=== PATIENT | male | born 1940 | race Caucasian/White ===

== ENCOUNTER 2022-05-19 13:54 | Emergency (ER) | payer MEDICARE, SELFPAY ==
--- NOTE | 2022-05-19 14:14 | XR_ITS ---
WS: [id number] Portable AP upright chest, 05/19/2022 Clinical Data: feeling unwell, COVID exposure Comparison: None. Findings: No nodules, masses or effusions are seen. The heart is normal. The pulmonary vascularity is not increased. No pneumonia or pneumothorax is seen. The aortic arch and descending thoracic aorta s how tortuosity. XR/XR chest 1V portable [id number] Impression: Atherosclerosis.
[2022-05-19 14:23] VITALS: BP 98/61; PULSE 74; RESP 16; TEMP 37.7; O2SAT 95
--- NOTE | 2022-05-19 16:53 | ED_ITS ---
HPI - General Adult General: Chief complaint: General Medical Stated complaint: Was exposed to covid, Not feeling well Time Seen by Provider: 05/19/22 15:41 Source: patient Mode of arrival: ambulatory Limitations: no limitations History of Present Illness: 82-year-old male presents emergency room as a h istory of dementia. Recently exposed to COVID by his . Patient has Alzheimer's. Generally not feeling well mild cough. No fevers.Patient denies chest or abdominal pain. Onset (ago): minute(s) Location: head Relieving factors: none Exacerbating factors: none Associated symptoms: Deny chest pain, confusion, cough, diaphoresis, decreased appetite, dyspnea, fevers/chills, headache(s), malaise, nausea, rash, palpitations, seizures, short of breath, syncope, vomiting or weakness Treatments prior to arrival: none Review of Systems Const: Denies: malaise or diaphoresis Card: Denies: chest pain, palpitations or syncope Resp: Denies: dyspnea GI: Denies: abdominal pain, nausea or vomiting Skin/Breast: Denies: rash Neuro: Denies: headache(s) or confusion PFSH ED PFSH: Medical History FH: carotid endarterectomy Surgical History H/O hernia repair H/O prostatectomy Social History Smoking and tobacco status: never smoked Second hand smoke exposure: No Smoking risk assessment/counseling performed?: No Alcohol intake: never Desire information about alcohol rehabilitation?: No Counseling given: No Desire information about substance/drug rehabilitation?: No Counseling given: No Physical Exam Const: GENERAL APPEARANCE: cooperative and comfortable ORIENTATION/CONSCIOUSNESS: Yes awake HENMT: COMMON NORMALS: normocephalic and atraumatic HEAD & SCALP: n ormocephalic and atraumatic Neck/C-Spine: COMMON NORMALS: no JVD Resp: COMMON NORMALS: normal respiratory effort, No retractions, No use of accessory muscles and clear to auscultation bilaterally AUSCULTATION: clear to auscultation bilaterally Cardio: COMMON NORMALS: no JVD, regular rate, regular rhythm and No murmurs present (Cardio) RATE: regular rate RHYTHM: regular rhythm GI: COMMON NORMALS: Soft to palpation and No hepatosplenomegaly present AUSCULTATION: Yes normoactive bowel sounds PALPATION: Yes Soft to palpation, No Tenderness to palpation present (GI), No Guarding due to palpation present (GI) and Yes No hepatosplenomegaly present Extremity: COMMON NORMALS: normal to inspection, capillary refill normal, no clubbing, cyanosis or edema, no calf tenderness and no pedal edema Skin: COMMON NORMALS: no rashes or lesions noted GENERAL SKIN EXAM: no rashes or lesions noted Course Vital Signs: Vital signs: Vital Signs Temperature 99.8 F H 05/19/22 14:23 Pulse Rate 76 05/19/22 18:00 Respiratory Rate 16 05/19/22 18:00 Blood Pressure 107/70 05/19/22 18:00 Pulse Oximetry 96 05/19/22 18:00 MDM - General Adult Medical Decision Making COVID swab positive. Patient minimally symptomatic no hypoxia. Chest x-ray unremarkable. Discharged home with lower dose renal adjusted palpable pack Slo- Bid. Discussed risks and benefits of the family including renal dose adjustment they wish to proceed. Follow-up with primary care as needed return to the ER for significant shortness of breath. Medical Records I reviewed the patient's medical records. Lab Data I reviewed the patient's lab results. : 05/19/22 17:19 05/19/22 17:19 Radiology Impressions Chest X-Ray 05/19/22 14:14 Impression: Atherosclerosis. Laboratory Results WBC 9.6 10^3/uL (4.0-10.0) 05/19/22 17:19 RBC 4.38 10^6/uL (4.1-5.3) 05/19/22 17:19 Hgb 13.7 g/dL (11.7-16.6) 05/19/22 17:19 Hct 42.2 % (42.0-52.0) 05/19/22 17:19 MCV 96.3 fl (80-94) H 05/19/22 17:19 MCH 31.3 pg (28.0-34.0) 05/19/22 17: MCHC 32.5 g/dL (30.0-36.0) 05/19/22 17:19 RDW 13.2 % (12.1-15.1) 05/19/22 17:19 Plt Count 159 10^3/cmm (130-400) 05/19/22 17:19 MPV 9.9 fL (7.4-10.4) 05/19/22 17:19 Neut % (Auto) 65.3 % 05/19/22 17:19 Lymph % (Auto) 12.6 % 05/19/22 17:19 Elmore % (Auto) 19.5 % 05/19/22 17:19 Eos % (Auto) 1.8 % 05/19/22 17:19 Baso % (Auto) 0.5 % 05/19/22 17:19 Neut # (Auto) 6.29 10^3/uL (1.8-7.7) 05/19/22 17:19 Lymph # (Auto) 1.2 10^3/uL (0.8-4.8) 05/19/22 17:19 Elmore # (Auto) 1.9 10^3/uL (0.2-0.9) H 05/19/22 17:19 Eos # (Auto) 0.2 10^3/uL (0.0-0.8) 05/19/22 17:19 Baso # (Auto) 0.1 10^3/uL (0.0-0.1) 05/19/22 17:19 Nucleated RBC % (auto) 0 % 05/19/22 17:19 Nucleated RBCs # 0.0 /100WBC 05/19/22 17:19 Sodium 141 mmol/L (136-145) 05/19/22 17:19 Potassium 4.2 mmol/L (3.5-5.1) 05/19/22 17:19 Chloride 103 mmol/L (98-107) 05/19/22 17:19 Carbon Dioxide 28 mmol/L (22-29) 05/19/22 17:19 Anion Gap 14.2 (5-19) 05/19/22 17:19 BUN 36 mg/dL (8-23) H 05/19/22 17:19 Creatinine 1.8 mg/dL (0.7-1.2) H 05/19/22 17:19 GFR Calculation Not Reportable 05/19/22 17:19 Glucose 96 mg/dL (65-115) 05/19/22 17:19 Calculated Osmolality 300 mOsm/kg (285-295) H 05/19/22 17:19 Calcium 9.3 mg/dL (8.5-10.5) 05/19/22 17:19 Coronavirus 229E (PCR) Not detected (NOT DETECT) 05/19/22 15:07 SARS-CoV-2 (PCR) Detected (NOT DETECT) A 05/19/22 15:07 Discharge Plan Discharge Patient Disposition: Home Clinical Impression: COVID-19, Dementia Condition: Stable Prescriptions: New Paxlovid (EUA) 150-100 mg tablet See Rx Instructions .ROUTE .COMPLEX Qty: 10 0RF Rx Instructions: take ONE 150 mg tablet of nirmatrelvir with ONE 100 mg tablet of ritonavir twice daily for 5 days No Action oxcarbazepine 150 mg tablet 150 mg PO BID 0RF levothyroxine 25 mcg tablet 25 mcg PO DAILY 0RF mirtazapine 15 mg tablet 15 mg PO DAILY 0RF aspirin [Bria Aspirin] 325 mg tablet 325 mg PO DAILY 0RF loratadine [Claritin] 10 mg tablet 10 mg PO DAILY 0RF lorazepam 0.5 mg tablet 0.5 mg PO DAILY PRN (Reason: Anxiety) 0RF vitamin B complex [B Complex-Vitamin B12] Tablet 1 tab PO DAILY 0RF losartan 50 mg tablet 50 mg PO DAILY 0RF folic acid 1 mg tablet 1 mg PO DAILY 0RF quetiapine 50 mg tablet 50 mg PO BID 0RF Discharge Orders: Discharge ED (Routine); Ordered 05/19/22 Ordered By: Stalin Vargas Referrals: Juaquin Najera MD [Primary Care Provider] - Patient Instructions: COVID-19 (Coronavirus Disease 2019) (ED), Opioid Safety Coding Level of Care Code ED Border [employer] Cutter for Sunni Aquino
[2022-05-19 17:23] LABS: Basophils # 0.1 10^3/uL (0.0-0.1); Basophils % 0.5 %; Eosinophils # 0.2 10^3/uL (0.0-0.8); Eosinophils % 1.8 %; Hematocrit 42.2 % (42.0-52.0); Hemoglobin 13.7 g/dL (11.7-16.6); Lymphocytes # 1.2 10^3/uL (0.8-4.8); Lymphocytes % 12.6 %; Mean Corpuscular HGB Conc 32.5 g/dL (30.0-36.0); Mean Corpuscular Hemoglobin 31.3 pg (28.0-34.0); Mean Corpuscular Volume 96.3 fl (80-94); Mean Platelet Volume 9.9 fL (7.4-10.4); Monocytes # 1.9 10^3/uL (0.2-0.9); Monocytes % 19.5 %; Neutrophils # 6.29 10^3/uL (1.8-7.7); Neutrophils % 65.3 %; Nucleated Red Blood Cells % 0 %; Platelet Count 159 10^3/cmm (130-400); Red Blood Count 4.38 10^6/uL (4.1-5.3); Red Cell Distribution Width 13.2 % (12.1-15.1); White Blood Count 9.6 10^3/uL (4.0-10.0)
[2022-05-19] MEDS: sodium chloride 0.9% 1,000 ML 999 ML IV (17:39)
[2022-05-19 18:00] VITALS: BP 107/70; PULSE 76; RESP 16; O2SAT 96
[2022-05-19 18:00] LABS: Anion Gap 14.2 (5-19); Blood Urea Nitrogen 36 mg/dL (8-23); Calcium 9.3 mg/dL (8.5-10.5); Carbon Dioxide 28 mmol/L (22-29); Chloride 103 mmol/L (98-107); Glucose 96 mg/dL (65-115); Osmolality Calculated 300 mOsm/kg (285-295); Potassium 4.2 mmol/L (3.5-5.1); Sodium 141 mmol/L (136-145)
[2022-05-19 18:21] LABS: Adenovirus Not Detected (NOT DETECT); Chlamydia Pneumoniae Not Detected (NOT DETECT); Coronavirus 229E,HKU1,NL63,OC4 Not Detected (NOT DETECT); Human Metapneumovirus Not Detected (NOT DETECT); Human Rhinovirus/Enterovirus Not Detected (NOT DETECT); Influenza A Not Detected (NOT DETECT); Influenza A H1 Not Detected (NOT DETECT); Influenza A H1-2009 Not Detected (NOT DETECT); Influenza A H3 Not Detected (NOT DETECT); Influenza B Not Detected (NOT DETECT); Mycoplasma Pneumoniae Not Detected (NOT DETECT); Parainfluenza Virus Type 1 Not Detected (NOT DETECT); Parainfluenza Virus Type 2 Not Detected (NOT DETECT); Parainfluenza Virus Type 3 Not Detected (NOT DETECT); Parainfluenza Virus Type 4 Not Detected (NOT DETECT); Respiratory Syncytial Virus A Not Detected (NOT DETECT); Respiratory Syncytial Virus B Not Detected (NOT DETECT); SARS-COV-2 Detected (NOT DETECT)
== END 2022-05-19 18:38 | disposition home or self-care (01) ==
PROVIDERS: Physician Assistant; Emergency Provider Family Medicine; PCP Internal Medicine
DX: U07.1 COVID-19 (principal); F03.90 Unspecified dementia, unspecified severity, without behavioral disturbance, psychotic disturbance, mood disturbance, and anxiety; Z79.82 Long term (current) use of aspirin
CPT/HCPCS: 71045; 80048; 85025; 87635; 99284; J7030

== ENCOUNTER 2023-10-17 13:36 | Emergency (ER) | payer MEDICARE, SELFPAY ==
[2023-10-17 13:44] VITALS: BMI 23.6
[2023-10-17 13:48] VITALS: BP 154/106; PULSE 77; RESP 16; TEMP 36.9; O2SAT 96
--- NOTE | 2023-10-17 13:54 | ED_ITS ---
HPI - Fall General: Chief Complaint: Head Injury Stated Complaint: fall, head injury Time Seen by Provider: 10/17/23 13:43 History of Present Illness: 83-year-old male patient was here at the imaging center with his spouse who was getting an MRI. Patient had got up to get something to read and tripped and fell hitting the back of his head against the floor. Patient denies any loss of consciousness. No reported loss of consciousness was noted. Patient has a history of dementia and anxiety. Patient is cooperative. Patient redirects well. Spouse did send a Ativan with staff in case he became anxious while she was finishing her MRI. Patient does have a laceration to the occipital scalp. Patient answers questions appropriately. Patient is cooperative. Associated symptoms-after fall: Denies chest pain, headache(s) or neck pain Review of Systems General: Reports: 10 or more systems reviewed and unremarkable except in HPI and below Card: Denies: chest pain Resp: Denies: dyspnea Musc: Denies: neck pain or back pain Skin/Breast: Reports: new lesions Neuro: Denies: headache(s) PFSH ED PFSH: Medical History FH: carotid endarterectomy Surgical History H/O hernia repair H/O prostatectomy Social History Smoking and tobacco/nicotine status: never used tobacco/nicotine Second hand smoke exposure: No Alcohol intake: never Substance/Drug Use: never Physical Exam Const: COMMON NORMALS: alert HENMT: COMMON NORMALS: TM's normal bilaterally and Normal external nose present HEAD & SCALP: laceration (3 cm occipital scalp well approximated) NOSE: Normal external nose present TYMPANIC MEMBRANE: TM's normal bilaterally MOUTH: Normal oral and palatal mucosa present Neck/C-Spine: COMMON NORMALS: full ROM CERVICAL SPINE: Yes cervical ROM normal Resp: COMMON NORMALS: normal respiratory effort GI: COMMON NORMALS: Soft to palpation PALPATION: Yes Soft to palpation Back/Pelvis: COMMON NORMALS: thoracic and lumbar spine normal to inspection Extremity: COMMON NORMALS: normal to inspection Neuro: SENSORIUM/ORIENTATION: Yes alert Skin: TRAUMA: laceration (Occipital scalp 3 cm) linear Procedures Laceration Laceration 1: Site: scalp Size (cm): 3 Description: linear Depth: simple, single layer Pre-repair: wound explored and irrigated extensively Skin layer closed with: other (Skin adhesive) Course Vital Signs: Vital signs: Vital Signs Temperature 98.4 F 10/17/23 13:48 Pulse Rate 77 10/17/23 13:48 Respiratory Rate 16 10/17/23 13:48 Blood Pressure 154/106 10/17/23 13:48 Pulse Oximetry 96 10/17/23 13:48 Oxygen Delivery Me thod Room Air 10/17/23 13:48 MDM - Fall Medical Decision Making 83-year-old male patient comes in today with a laceration to occipital scalp. On exam patient has a linear 3 cm laceration to the occipital scalp that is well-approximated. No crepitus or skull depression is noted on exam. Patient moves neck well. Pupils are equal and reactive. Patient moves all extremities well. No focal neural deficits are noted. Vital signs are normal. Differential diagnosis includes not limited to intracranial bleeding, skull fracture, laceration. Laceration was repaired with skin adhesive. CT of the head showed no acute injury. Reviewed exam with patient and spouse with recommendations for follow-up or return to the ER. Spouse reported understanding and agreed to plan. All radiology interpretation(s) finalized by discharge Discharge Plan Discharge Patient Disposition: Home Clinical Impression: Fall Qualifiers: Encounter type: initial encounter Qualified Code(s): W19.XXXA - Unspecified fall, initial encounter Head injury Qualifiers: Encounter type: initial encounter Qualified Code(s): S09.90XA - Unspecified injury of head, initial encounter Scalp laceration Qualifiers: Encounter type: initial encounter Qualified Code(s): S01.01XA - Laceration without foreign body of scalp, initial encounter Condition: Stable Prescriptions: No Action oxcarbazepine 150 mg tablet 150 mg PO BID levothyroxine 25 mcg tablet 25 mcg PO DAILY mirtazapine 15 mg tablet 15 mg PO DAILY aspirin [Bria Aspirin] 325 mg tablet 325 mg PO DAILY loratadine [Claritin] 10 mg tablet 10 mg PO DAILY lorazepam 0.5 mg tablet 0.5 mg PO DAILY vitamin B complex [B Complex-Vitamin B12] Tablet 1 tab PO DAILY losartan 50 mg tablet 50 mg PO DAILY folic acid 1 mg tablet 1 mg PO DAILY quetiapine 50 mg tablet 50 mg PO BID lovastatin 40 mg tablet 40 mg PO DAILY Discharge Orders: Discharge ED (Routine); Ordered 10/17/23 Ordered By: Leonardo Live Referrals: Juaquin Najera MD [Primary Care Provider] - Discharge Diet: Usual diet Discharge Activity: Increase activity as tolerated Patient Instructions: Skin Adhesive Care (ED) Activity Restrictions/Additional Instructions: Keep wound clean and dry. Is very important keep the wound as dry as possible for the next 48 hours. Allow the glue to come off on its own. You can wash the area around the site with mild soap and water. Dry thoroughly and protect wound from further injury. Follow-up with primary care for further instructions. Return to ED for new concerns or worsening symptoms such as severe headache or high fever. Coding Level of Care Code ED Portfolio Accountant for Sunni Aquino
--- NOTE | 2023-10-17 13:54 | CT_ITS ---
WS: [id number] CT HEAD NONCONTRAST HISTORY: fall injury TECHNIQUE: Contiguous axial imaging performed through the brain in 2.5 mm imaging. Bone and soft tiss ue windows. Sagittal and coronal reformats reviewed. All CT scans at [facility] use at least one of these dose optimization techniques: automated exposure control; mA and/or kV adjustment per pa tient size (includes targeted exams where dose is matched to clinical indication); or iterative recon struction. DLP: 2248.44 mGy.cm COMPARISON: None available. No acute intracranial hemorrhage, midline shift or mass effect. Moderate symmetric atrophy. Numerous bilateral lacunar infarcts. There is a large perivascular space along the inferior RIGHT basal ganglia. Moderate to severe small vessel ischemic type changes. Ventricles: Normal size with no hydrocephalus. No inferior displacement the cerebellar tonsils. Very heavy dense calcification in the distal vertebr al arteries and through the intracranial carotid arteries. Paranasal sinuses: As visualized are clear. Mastoid air cells: Well pneumatized. Calvarium and scalp: Skull is intact with no soft tissue edema or swelling. IMPRESSION: 1. No acute intracranial hemorrhage or edema. 2. Moderate atrophy with numerous small lacunar infarcts send perivascular spaces. 3. Heavy dense calcification in the distal vertebral and intracranial carotid arteries.
== END 2023-10-17 14:43 | disposition home or self-care (01) ==
PROVIDERS: Emergency Provider Nurse Practitioner Family; PCP Internal Medicine
DX: S01.01XA Laceration without foreign body of scalp, initial encounter (principal); Z79.82 Long term (current) use of aspirin; W01.0XXA Fall on same level from slipping, tripping and stumbling without subsequent striking against object, initial encounter; Y92.238 Other place in hospital as the place of occurrence of the external cause; F03.90 Unspecified dementia, unspecified severity, without behavioral disturbance, psychotic disturbance, mood disturbance, and anxiety
CPT/HCPCS: 12002; 70450; 99284

== ENCOUNTER 2023-11-08 00:03 | Inpatient (IN) | payer OTHER, MEDICARE, SELFPAY ==
[2023-11-08] VITALS (12 sets, daily range): BP systolic 89–139; BP diastolic 54–81; PULSE 60–88; RESP 14–20; TEMP 35.6–36.8; O2SAT 94–99; BMI 25.7; BMI 19.9
[2023-11-08] MEDS: pantoprazole 40 mg SDV IVP ×2 (00:45→04:12)
[2023-11-08] MEDS: sodium chloride 0.9% 1,000 ML 999 ML IV (00:45)
[2023-11-08 00:50] LABS: Basophils % 0.2 %; Eosinophils % 0.2 %; Lymphocytes # 0.5 10^3/uL (0.8-4.8); Lymphocytes % 3.9 %; Mean Corpuscular HGB Conc 29.1 g/dL (30-55); Mean Corpuscular Hemoglobin 23.4 pg (27-33); Mean Corpuscular Volume 80.6 fl (82-101); Mean Platelet Volume 10.1 fL (7.4-10.4); Monocytes % 7.6 %; Neutrophils # 10.96 10^3/uL (1.8-7.7); Neutrophils % 87.5 %; Nucleated Red Blood Cells % 0 %; Platelet Count 195 10^3/cmm (157-399); Red Blood Count 2.73 10^6/uL (3.85-5.65); Red Cell Distribution Width 17.6 % (12.1-15.1); White Blood Count 12.55 10^3/uL (3.29-11.43)
[2023-11-08 01:09] LABS: Alanine Aminotransferase 8 U/L (0-41); Albumin Level 3.2 g/dL (3.5-5.2); Alkaline Phosphatase 97 U/L (40-130); Anion Gap 17.4 (5-19); Aspartate Amino Transferase 25 U/L (0-40); Blood Urea Nitrogen 54 mg/dL (8-23); Calcium 8.4 mg/dL (8.5-10.5); Carbon Dioxide 21 mmol/L (22-29); Chloride 107 mmol/L (98-107); Globulin 2.6 g/dL (1.3-4.6); Glucose 125 mg/dL (65-115); Osmolality Calculated 308 mOsm/kg (285-295); Potassium 4.4 mmol/L (3.5-5.1); Sodium 141 mmol/L (136-145); Total Bilirubin 0.2 mg/dL (0.15-1.2); Total Protein 5.8 g/dL (6.6-8.7)
[2023-11-08 01:48] LABS: Add Urine Microscopic? YES; Bacteria Urine TRACE /hpf; Bilirubin Urine Neg (Negative); Blood Urine Neg (Negative); Glucose Urine UA Norm (Normal); Ketones Urine Negative (Negative); Leukocyte Esterase Urine Negative (Negative); Nitrate Urine Negative (Negative); Protein Urine Neg (Negative); Specific Gravity, Urine 1.015 (1.005-1.030); Urine Appearance SL Hazy (CLEAR); Urine Color Light yellow (Yellow); Urobilinogen Urine Neg (Negative); pH Urine 5 (5-7)
[2023-11-08 01:49] LABS: Add Urine Culture? No; Amorphous Sediment Urine 1+ /hpf; Mucus Urine 2+ /hpf
[2023-11-08] MEDS: octreotide 100 mcg/mL SDV 50 MCG IVP (02:22)
--- NOTE | 2023-11-08 03:08 | P.HP_ITS ---
Providers/Chief Complaint 2 Admitting Physician: Kalyani Enrique MD Chief Complaint: N/V History of Present Illness Ruben Joshi is a 83 year old male with advanced dementia, severe aortic stenosis who is on home hospice for his neurological and cardiac decline. Presented to the emergency room today with chief complaints of hematemesis. Per he was in his usual state of health until this evening when after eating his supper supper he had an episode of vomiting which had blood clots in it. He also had dark brown bowel movements, FOBT was positive when tested in the ER. He had a hemoglobin of 6.4 and has soft blood pressures between 89 to 99 mmHg. History is obtained mainly by talking to patient's as patient is unable to participate. Patient typically takes aspirin 325 mg p.o. daily at home. He has been complaining of some on and off epigastric discomfort the past few days. No recent NSAIDs. He has never had any endoscopy or colonoscopy before. No known history of gastric or duodenal ulcers. Review of Systems 2 General: Reports: ROS unobtainable due to medical condition and ROS unobtainable due to mental status Medications/Allergies Home Medications Medication Instructions Recorded Confirmed Last Taken Type aspirin 325 mg tablet (Bria 325 mg PO DAILY 03/10/21 10/17/23 10/17/23 History Aspirin) levothyroxine 25 mcg tablet 25 mcg PO DAILY 03/10/21 10/17/23 10/17/23 History loratadine 10 mg tablet (Claritin) 10 mg PO DAILY 03/10/21 10/17/23 10/17/23 History lorazepam 0.5 mg tablet 0.5 mg PO DAILY 03/10/21 10/17/23 10/17/23 History mirtazapine 15 mg tablet 15 mg PO DAILY 03/10/21 10/17/23 10/17/23 History oxcarbazepine 150 mg tablet 150 mg PO BID 03/10/21 10/17/23 10/17/23 History vitamin B complex (B 1 tab PO DAILY 03/10/21 10/17/23 10/17/23 History Complex-Vitamin B12 tablet) folic acid 1 mg tablet 1 mg PO DAILY 05/19/22 10/17/23 10/17/23 History losartan 50 mg tablet 50 mg PO DAILY 05/19/22 10/17/23 10/17/23 History quetiapine 50 mg tablet 50 mg PO BID 05/19/22 10/17/23 10/16/23 History lovastatin 40 mg tablet 40 mg PO DAILY 10/17/23 10/17/23 10/17/23 History Allergies Allergy/AdvReac Type Severity Reaction Status Date / Time No Known Allergies Allergy Verified 10/17/23 14:27 PFSH Acute 2 PFSH: Medical History FH: carotid endarterectomy Surgical History H/O hernia repair H/O prostatectomy Social History Smoking and tobacco/nicotine status: never used tobacco/nicotine Second hand smoke exposure: No Alcohol intake: never Substance/Drug Use: never Vitals/I&O/Wt Last Vital Signs Temp 96.5 F L 11/08/23 02:34 Pulse 67 11/08/23 02:34 Resp 15 11/08/23 02:34 BP 99/54 11/08/23 02:34 Pulse Ox 95 11/08/23 02:34 O2 Del Method Room Air 11/08/23 02:15 11/07/23 11/07/23 11/08/23 14:59 22:59 06:59 Intake Total 0 / 0 Balance 0 / 0 Weight last 48 hrs Weight 90.718 kg Physical Exam 2 Narrative: General: No acute distress, AO x1 HEENT: PERRLA, pupils bilaterally equal and reactive, pallors ++ Chest: Normal vesicular breath sounds, no added sounds, equal good air entry bilaterally CVS: S1-S2 regular, no murmurs, no tachycardia, no gallops, no rubs Abdomen: Soft, nontender, no organomegaly, bowel sounds present Neuro: No focal deficits, no facial deformity, AO x1, laying in bed to 1 side Data 11/08/23 00:40 11/08/23 00:40 A&P Assessment and plan (1) Gastrointestinal bleeding: (2) Hospice care: (3) Aortic stenosis: (4) Acute blood loss anemia: Plan 83-year-old man on home hospice for his neurological and cardiac comorbidities, presenting to the emergency room today with hematemesis and melena. Been complaining of epigastric discomfort leading in the days prior. Suspect that patient may have gastric versus duodenal ulceration which may be the source of bleeding. He received 80 mg of IV push Protonix in the emergency room, will continue 40 mg IV every 12 hours. He is ordered for 1 unit blood transfusion currently, will transfuse an additional unit to keep a target hemoglobin of 8 and cardiac patient. Discussed extensively with the that without endoscopic evaluation it is not possible to know where the patient may be bleeding and ideally in this situation with acute blood loss leading to anemia and hemodynamic instability, we need to proceed with endoscopic evaluation in an attempt to identify source of bleeding and possibly intervene. His states that this is not in keeping with his overall goals of care which are hospice only. Discussed with that should he continue to be hypotensive and if blood transfusion and medical management fails to resolve his bleeding he is at a high chance of dying from his GI bleed. She states that she understands and should his condition deteriorate and spite of conservative medical management, she would like to transition patient to comfort care management only. Declines endoscopy, declines placement of any central lines or pressor support, okay for blood transfusion and IV medications currently. Noted to have intermittent pause on telemetry and soft blood pressure, is aware, not okay with any aggressive intervention such as pacemakers, pressors, etc. Overall aim currently to transfuse and attempt to stabilize with goal to return home with hospice. D/c Aspirin DNR/DNI DVT ppx: Scds only , a/c contraindicated Attestations 2 Medical Necessity Statement*: Greater than 2 midnight admission is anticipated for above defined care Coding Level of Care Code Acute Code for Chg Fwd High MDM includes number and complexity of problems actively addressed during encounter, amount and/or complexity of data reviewed/ordered and described risk of complication, morbidity or mortality of management as documented Diagnoses Gastrointestinal bleeding K92.2 Hospice care Z51.5 Aortic stenosis I35.0 Acute blood loss anemia D62
--- NOTE | 2023-11-08 03:53 | PC.NURSE ---
This nurse confirmed with the (Jocy) at bedside that if the pts condition declines that aggressive measures are not to be taken and that the pt was to be kept comfortable. The stated the main goal is his comfort This nurse explained the plan of care and the was understanding and all questions were answered from the .
--- NOTE | 2023-11-08 04:12 | W.ED.NAVMDI ---
HPI - Nausea/Vomiting/Diarrhea General: Chief complaint: Nausea/Vomiting/Diarrhea Stated complaint: N/V Time Seen by Provider: 11/08/23 00:05 History of Present Illness: 83-year-old male with complex medical history including advanced dementia and currently on hospice, hypothyroidism, hypertension and hyperlipidemia. Patient was brought into emergency room by EMS after the called due to vomiting and diarrhea that started few hours ago. According to the patient had about 2 episodes of vomiting with some blood and noticed copious amount of diarrhea with dark stool. Upon present emergency room patient is moderately sedated due to for that he was given ketamine due to aggressive behavior in route. with the patient is currently taking aspirin but denies any other blood thinners. Patient does not drink alcohol. Associated nausea: Yes Associated symtoms: Reports nausea Review of Systems General: Reports: 10 or more systems reviewed and unremarkable except in HPI and below Const: Denies: fever(s), chills, body aches or change in weight Resp: Denies: dyspnea, productive cough or hemoptysis GI: Reports: nausea, vomiting, hematemesis, diarrhea and melena; Denies: rectal pain or rectal swelling FOR[facility]LY [facility] ED PFSH: Medical History FH: carotid endarterectomy Surgical History H/O hernia repair H/O prostatectomy Social History Smoking and tobacco/nicotine status: never used tobacco/nicotine Second hand smoke exposure: No Alcohol intake: never Substance/Drug Use: never Physical Exam Const: EXAM LIMITATIONS: behavioral limitations and other limitations (Demented) GENERAL APPEARANCE: not in distress, not disheveled, not lethargic and no odor of alcohol detected ORIENTATION/CONSCIOUSNESS: not lethargic HENMT: COMMON NORMALS: normocephalic, atraumatic, hearing grossly normal bilaterally, external ears normal, EAC's normal, TM's normal bilaterally, Normal external nose present, Normal nasal mucous membranes and turbinates present, moist oral mucous membranes, oropharynx normal, dentition normal and gingiva normal HEAD & SCALP: normocephalic and atraumatic NOSE: Normal external nose present and Normal nasal mucous membranes and turbinates present EXTERNAL EAR: Yes external ears normal EXTERNAL AUDITORY CANAL: EAC's normal TYMPANIC MEMBRANE: TM's normal bilaterally Neck/C-Spine: COMMON NORMALS: no JVD Chest: COMMONS NORMALS: normal inspection of the chest, normal palpation of entire chest wall, normal inspection of the breasts and normal palpation of the breasts Breast/axilla inspection: Yes normal inspection of the breasts BREAST/AXILLA PALPATION: Yes normal palpation of the breasts Resp: COMMON NORMALS: normal respiratory effort, No retractions, No use of accessory muscles, clear to auscultation bilaterally and percussion normal AUSCULTATION: clear to auscultation bilaterally PERCUSSION: percussion normal Cardio: COMMON NORMALS: no JVD, regular rate, regular rhythm, S1 normal heart sound present, S2 normal heart sound present, No gallops present (Cardio), No clicks present (Cardio), No murmurs present (Cardio), No rub (Cardio) and Peripheral pulses 2+ throughout RATE: regular rate RHYTHM: regular rhythm HEART SOUNDS: S1 normal heart sound present and S2 normal heart sound present PERIPHERAL PULSES: Peripheral pulses 2+ throughout GI: COMMON NORMALS: Soft to palpation; negative for No hepatosplenomegaly present INSPECTION: No Laceration(s) present (GI) PALPATION: Yes Soft to palpation, No Rigid due to palpation, No No hepatosplenomegaly present, No Hepatosplenomegaly present and No Hepatomegaly present RECTAL EXAM: Yes visual inspection normal, Yes normal sphincter tone, Yes heme positive stool, No Rectal prolapse, No Lesions present (GI), No Fistula present (GI), No Laceration(s) present (GI), No Excoriation present (GI), No fecal impaction and No tenderness : COMMON NORMALS: Yes no CVA tenderness BLADDER/KIDNEY EXAM: Yes no CVA tenderness Back/Pelvis: COMMON NORMALS: no CVA tenderness, thoracic and lumbar spine normal to inspection, no thoracic nor lumbar tenderness, thoraco-lumbar ROM normal and straight leg raise negative bilaterally Neuro: SENSORIUM/ORIENTATION: No lethargic Skin: COMMON NORMALS: no rashes or lesions noted, no wounds, turgor normal, no jaundice, no petechiae and no mottling GENERAL SKIN EXAM: no rashes or lesions noted and turgor normal Course Vital Signs: Vital signs: Vital Signs Temperature 97.6 F 12/28/23 03:49 Pulse Rate 60 11/08/23 03:49 Respiratory Rate 14 11/08/23 03:49 Blood Pressure 117/68 11/08/23 03:49 Pulse Oximetry 96 11/08/23 03:49 Oxygen Delivery Me thod Room Air 11/08/23 03:49 MDM - Nausea/Vomiting/Diarrhea Medical Decision Making Patient made comfortable emergency room had extensive workup including CBC, CMP,. Patient was given IV Protonix, IV octreotide and 1 unit of blood. I discussed the current situation with the . reveals that patient is DNR but she consented to blood products at this time. Discussed patient with the hospitalist. Will admit for further evaluation and treatment. Lab Data 11/08/23 00:40 11/08/23 00:40 Laboratory Results WBC 12.55 10^3/uL (3.29-11.43) H 11/08/23 00:40 RBC 2.73 10^6/uL (3.85-5.65) L 11/08/23 00:40 Hgb 6.40 g/dL (11.27-16.99) L* 11/08/23 00:40 Hct 22.0 % (37-53) L 11/08/23 00:40 MCV 80.6 fl (82-101) L 11/08/23 00:40 MCH 23.4 pg (27-33) L 11/08/23 00:40 MCHC 29.1 g/dL (30-55) L 11/08/23 00:40 RDW 17.6 % (12.1-15.1) H 11/08/23 00:40 Plt Count 195 10^3/cmm (157-399) 11/08/23 00:40 MPV 10.1 fL (7.4-10.4) 11/08/23 00:40 Neut % (Auto) 87.5 % 11/08/23 00:40 Lymph % (Auto) 3.9 % 11/08/23 00:40 [place] % (Auto) 7.6 % 11/08/23 00:40 Eos % (Auto) 0.2 % 11/08/23 00:40 Baso % (Auto) 0.2 % 11/08/23 00:40 Neut # (Auto) 10.96 10^3/uL (1.8-7.7) H 11/08/23 00:40 Lymph # (Auto) 0.5 10^3/uL (0.8-4.8) L 11/08/23 00:40 [place] # (Auto) 1.0 10^3/uL (0.2-0.9) H 11/08/23 00:40 Eos # (Auto) 0.0 10^3/uL (0.0-0.8) 11/08/23 00:40 Baso # (Auto) 0.0 10^3/uL (0.0-0.1) 11/08/23 00:40 Nucleated RBC % (auto) 0 % 11/08/23 00:40 Nucleated RBCs # 0.0 /100WBC 11/08/23 00:40 Sodium 141 mmol/L (136-145) 11/08/23 00:40 Potassium 4.4 mmol/L (3.5-5.1) 11/08/23 00:40 Chloride 107 mmol/L (98-107) 11/08/23 00:40 Carbon Dioxide 21 mmol/L (22-29) L 11/08/23 00:40 Anion Gap 17.4 (5-19) 11/08/23 00:40 BUN 54 mg/dL (8-23) H 11/08/23 00:40 Creatinine 1.8 mg/dL (0.7-1.2) H 11/08/23 00:40 GFR Calculation Not Reportable 11/08/23 00:40 Glucose 125 mg/dL (65-115) H 11/08/23 00:40 Calculated Osmolality 308 mOsm/kg (285-295) H 11/08/23 00:40 Calcium 8.4 mg/dL (8.5-10.5) L 11/08/23 00:40 Total Bilirubin 0.2 mg/dL (0.15-1.2) 11/08/23 00:40 AST 25 U/L (0-40) 11/08/23 00:40 ALT 8 U/L (0-41) 11/08/23 00:40 Alkaline Phosphatase 97 U/L (40-130) 11/08/23 00:40 Total Protein 5.8 g/dL (6.6-8.7) L 11/08/23 00:40 Albumin 3.2 g/dL (3.5-5.2) L 11/08/23 00:40 Globulin 2.6 g/dL (1.3-4.6) 11/08/23 00:40 Urine Color Light yellow (Yellow) 11/08/23 01:05 Urine Appearance Sl hazy (CLEAR) A 11/08/23 01:05 Urine pH 5 (5-7) 11/08/23 01:05 Ur Specific [place] 1.015 (1.005-1.030) 11/08/23 01:05 Urine Protein Neg (Negative) 11/08/23 01:05 Urine Glucose (UA) Norm (Normal) 11/08/23 01:05 Urine Ketones Negative (Negative) 11/08/23 01:05 Urine Blood Neg (Negative) 11/08/23 01:05 Urine Nitrate Negative (Negative) 11/08/23 01:05 Urine Bilirubin Neg (Negative) 11/08/23 01:05 Urine Urobilinogen Neg mg/dL (Negative) 11/08/23 01:05 Ur Leukocyte Esterase Negative (Negative) 11/08/23 01:05 Urine RBC None /hpf (0-2) 11/08/23 01:05 Urine WBC None /hpf (0-5) 11/08/23 01:05 Ur Squamous Epith Cells None /hpf (0-5) 11/08/23 01:05 Amorphous Sediment 1+ /hpf 11/08/23 01:05 Urine Bacteria Trace /hpf (NONE) 11/08/23 01:05 Urine Mucus 2+ /hpf 11/08/23 01:05 Blood Type O Positive 11/08/23 00:40 Rho(D) Type Rh positive 11/08/23 00:40 Antibody Screen Negative 11/08/23 00:40 Crossmatch See Detail 11/08/23 00:40 No radiology studies performed this visit Critical Care Time Critical Care Time: Critical Care Time: Yes Total Critical Care Time: 40 Attestation: Patient made comfortable in emergency room. Time spent reviewing past medical records and history. Time spent reevaluate patient after treatment. Time spent discussing patient with the family and the hospitalist. Discharge Plan Discharge Patient Disposition: Admitted As Inpatient Admit Provider: Kalyani Enrique Clinical Impression: Gastrointestinal bleeding, Dementia, Anemia Condition: Stable Coding Level of Care Code ED Chief Of Hospital Medicine for Chg Fwd
--- NOTE | 2023-11-08 07:51 | PC.NURSE ---
Jessica with hospice was called and provided an update. Jocy reported before leaving that she has also spoke with Jessica and plans to get Ruben back on hospice. All questions were answered from Jocy at the time of discharge.
--- NOTE | 2023-11-08 18:57 | PC.NURSE ---
Prior to discharge, the pt received approximately 30 ml of the second unit of blood. The and were both aware.
== END 2023-11-08 07:37 | disposition hospice, home (50) | DRG 378 ==
LOC: ER 00:20 → MEDSURG 02:58
PROVIDERS: Admitting Provider Student in an Organized Health Care Education/Training Program; Emergency Provider Family Medicine; Visit Provider Student in an Organized Health Care Education/Training Program
DX: K92.2 Gastrointestinal hemorrhage, unspecified (principal); D62 Acute posthemorrhagic anemia; Z51.5 Encounter for palliative care; Z66 Do not resuscitate; I10 Essential (primary) hypertension; E78.5 Hyperlipidemia, unspecified; I35.0 Nonrheumatic aortic (valve) stenosis; F03.90 Unspecified dementia, unspecified severity, without behavioral disturbance, psychotic disturbance, mood disturbance, and anxiety
CPT/HCPCS: 36415; 36430; 80053; 81001; 85025; 86850; 86900; 86920; 96374; 96375; 99285; C9113; J2354; J7030; P9016; P9040